=== PATIENT | female | born 1990 | race Caucasian/White ===

== ENCOUNTER 2019-12-14 20:57 | Emergency (ER) | payer BC, OTHER ==
[~2019-12-14] VITALS: Ht 165.1 cm; Wt 86.2 kg
[~2019-12-14 20:57] MED LIST: CLEOCIN HCL150 MG PO; FLOMAX0.4 MG PO; PERCOCET 5-3251 EACH PO; ZOFRAN ODT4 MG PO
[2019-12-14] MEDS ORDERED: PEPTO-BISMOL1 TAB (21:07)
[2019-12-14 21:26] LABS: URINE BILIRUBIN NEGATIVE (Negative); URINE BLOOD TRACE (Negative); URINE CLARITY CLEAR; URINE COLOR YELLOW; URINE GLUCOSE-RANDOM* NEGATIVE (Negative); URINE KETONES NEGATIVE (Negative); URINE LEUKOCYTES-REFLEX NEGATIVE (Negative); URINE NITRITE-REFLEX NEGATIVE (Negative); URINE PROTEIN (DIPSTICK) NEGATIVE (Negative); URINE SPECIFIC GRAVITY >= 1.030 (1.005-1.035); URINE UROBILINOGEN 0.2 E.U./dl (0.2-1.0)
[2019-12-14 21:50] LABS: ABSOLUTE NEUTROPHILS 6.8 thou/uL (1.4-8.2); BASOPHILS 0.3 % (0.0-2.0); EOSINOPHILS 1.6 % (0.0-3.0); HEMATOCRIT 41.8 % (37.0-47.0); LYMPHOCYTES 13.3 % (24.0-44.0); MCH 29.2 pg (26.0-34.0); MCHC 33.6 g/dL (28.0-37.0); MCV 86.9 fL (80.0-100.0); PLATELET COUNT 226 thou/uL (150-400); POLYS 79.8 % (36.0-66.0); RBC 4.81 mil/uL (4.20-5.00); RDW 13.7 % (10.5-14.5); WBC 8.5 thou/uL (4.0-11.0)
[2019-12-14 22:14] LABS: CREATININE 0.7 mg/dL (0.6-1.0); POTASSIUM 3.7 mmol/L (3.5-5.1); TOTAL PROTEIN 8.1 g/dL (6.4-8.2)
[2019-12-14] MEDS ORDERED: ZANTAC 150MG T150 MG PO (22:42)
[2019-12-14] MEDS ORDERED: ONDANSETRON HCL4 M2 PO (22:42)
[2019-12-14 22:50] VITALS: BP 119/84
== END 2019-12-14 22:50 | disposition home or self-care (01) ==
LOC: ER 20:57
PROVIDERS: Physician Assistant
DX: R10.13 Epigastric pain (principal); R19.7 Diarrhea, unspecified; R63.0 Anorexia; Z79.899 Other long term (current) drug therapy; Z98.890 Other specified postprocedural states